=== PATIENT | male | born 1980 | race Hispanic/Latino ===

== ENCOUNTER 2022-03-09 14:43 | Inpatient (IN) | payer SELFPAY ==
[2022-03-09] MEDS ORDERED: MINERAL OIL/PETROLATUM, WHITE OPHTH OINT 3.5 GM OU PRN (15:06)
[2022-03-09] MEDS ORDERED: LIP THERAPY VASELINE TP PRN (15:06)
--- NOTE | 2022-03-09 15:13 | Emergency Department Report ---
ED Altered Mental Status HPI - General Chief Complaint: Altered Mental Status Stated Complaint: UNRESPONSIVE Time Seen by Provider: 03/09/22 15:03 Source: EMS Mode of arrival: Stretcher Limitations: Altered Mental Status - History of Present Illness Initial Comments: 41-year-old male with unknown past medical history presents to the hospital with possible drug overdose. EMS was called by unknown person who was originally at the scene stating that patient had overdosed. At time a police arrival this person was no longer at the scene. There was a female landlord at the scene who thought patient was sleeping on the couch. sba business development officer recognized that patient had diminished respirations and initiated sternal rub prior to EMS arrival. Upon EMS arrival patient had decreased respiratory rate and diminished mental status is satting in the 70s on room air. He received 1 mg of Narcan with improvement in her respiratory rate and oxygen saturation while assisted. They report that respiratory rate diminished and he required an additional 1 mg of Narcan prior to arrival. Upon arrival patient has a respiratory rate of 12- 15 unresponsive to deep stimulation. We provided 2.4 mg of Narcan upon arrival without improvement in mental status therefore patient was intubated for airway protection. - Related Data Allergies Allergy/AdvReac Type Severity Reaction Status Date / Time Unable to Assess Allergy Verified 03/09/22 14:49 ED Review of Systems ROS: Stated complaint: UNRESPONSIVE Other details as noted in HPI Comment: Unobtainable due to pts medical conditions ED Physical Exam - General Limitations: Altered Mental Status - Other Other exam information: General: No acute distress Head: Atraumatic Eyes: Pupils equal react to light 3mm equal and reactive ENT: Moist mucous membranes Neck: Normal appearance, no midline tenderness Chest: Clear to auscultation bilaterally CV: Regular rate and rhythm Abdomen: Soft, normal bowel sounds, nontender, nondistended, no rebound or guarding Back: Normal inspection Extremity: Normal inspection, full range of motion Neuro: drowsy gcs E 3, V 1, M 3= 7 patient only responds occasionally to pain and will lift his head off in response to deep sternal rub. No response to IV sticks or other tactile stimulation Psych: Unresponsive Skin: Sternal abrasion ED Course Vital Signs 03/09/22 03/09/22 03/09/22 14:48 14:50 15:01 Pulse Rate 96 H 89 Respiratory Rate Blood Pressure 125/76 Blood Pressure 134/84 [Left] O2 Sat by Pulse 99 100 100 Oximetry 03/09/22 03/09/22 03/09/22 15:15 15:31 15:45 Pulse Rate 89 78 75 Respiratory 22 22 22 Rate Blood Pressure 125/76 108/65 101/56 Blood Pressure [Left] O2 Sat by Pulse 100 100 100 Oximetry 03/09/22 03/09/22 03/09/22 16:01 16:15 16:31 Pulse Rate 67 62 59 L Respiratory 22 22 22 Rate Blood Pressure 97/53 100/57 102/58 Blood Pressure [Left] O2 Sat by Pulse 100 100 100 Oximetry 03/09/22 03/09/22 03/09/22 16:45 17:01 17:40 Pulse Rate 55 L 53 L 61 Respiratory 22 22 Rate Blood Pressure 104/59 104/63 95/56 Blood Pressure [Left] O2 Sat by Pulse 100 100 100 Oximetry - Reevaluation(s) Reevaluation #1: 03/09/22 17:08 RN states she spoke to family and they state his drugs of choice are xanax and heroin - Consultations Consultation #1: 03/09/22 17:[address] 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 - Intubation Time Out Performed: Yes Sedative: Etomidate Mg Given: 20 Paralytic: Succinylcholine Mg Given: 100 Laryngoscope: fiberoptic video scope Size: 4 ET Tube Size: 7.5 Tube Secured Depth (cm): 22 Tube Secured Location: lips Tube Placement Confirmation: visualized tube passing t, equal breath sounds bilat, no breath sounds over epi, confirmation by capnometr Patient Tolerated Procedure: well, no complications Intubation Complications: none Additional Comments: Respiratory therapist informed to advance ET tube to 25 at the lips after chest x-ray review - Lab Data Result diagrams: 03/09/22 15:09 03/09/22 15:35 Lab Results 03/09/22 03/09/22 03/09/22 Range/Units 15:09 15:35 15:35 WBC 9.6 (4.5-11.0) K/mm3 RBC 5.16 H (3.65-5.03) M/mm3 Hgb 16.1 H (11.8-15.2) gm/dl Hct 46.3 H (35.5-45.6) % MCV 90 (84-94) fl MCH 31 (28-32) pg MCHC 35 H (32-34) % RDW 13.1 L (13.2-15.2) % Plt Count 230 (140-440) K/mm3 Lymph % (Auto) 6.4 L (13.4-35.0) % [place] % (Auto) 3.5 (0.0-7.3) % Eos % (Auto) 0.4 (0.0-4.3) % Baso % (Auto) 0.4 (0.0-1.8) % Lymph # (Auto) 0.6 L (1.2-5.4) K/mm3 [place] # (Auto) 0.3 (0.0-0.8) K/mm3 Eos # (Auto) 0.0 (0.0-0.4) K/mm3 Baso # (Auto) 0.0 (0.0-0.1) K/mm3 Seg Neutrophils % 89.3 H (40.0-70.0) % Seg Neutrophils # 8.6 H (1.8-7.7) K/mm3 ABG pH (7.350-7.450) pH Units ABG pCO2 mm Hg ABG pO2 (80.0-90.0) mm Hg ABG HCO3 (20.0-26.0) mmol/L ABG O2 Saturation (95.0-99.0) % ABG O2 Content (0.0-44) ABG Base Excess (-2.0-3.0) mmol/L ABG Hemoglobin (14.0-18.0) gm/dl ABG Carboxyhemoglobin (0.0-5.0) % ABG Methemoglobin (0.0-1.5) % Oxyhemoglobin (95.0-99.0) % FiO2 % Sodium 141 (137-145) mmol/L Potassium 4.2 (3.6-5.0) mmol/L Chloride 102.4 (98-107) mmol/L Carbon Dioxide 24 (22-30) mmol/L Anion Gap 19 mmol/L BUN 21 H (9-20) mg/dL Creatinine 1.5 H (0.8-1.3) mg/dL Estimated GFR 51 ml/min BUN/Creatinine Ratio 14 % Glucose 184 H (75-100) mg/dL Calcium 9.0 (8.4-10.2) mg/dL Magnesium (1.7-2.3) mg/dL Total Bilirubin 0.80 (0.1-1.2) mg/dL AST 386 H (5-40) units/L ALT 314 H (7-56) units/L Alkaline Phosphatase 64 (35-129) units/L Ammonia (25-60) umol/L Total Creatine Kinase (55-170) units/L Total Protein 7.2 (6.3-8.2) g/dL Albumin 4.2 (3.9-5) g/dL Albumin/Globulin Ratio 1.4 % Urine Color (Yellow) Urine Turbidity (Clear) Urine pH (5.0-7.0) Ur Specific [place] (1.003-1.030) Urine Protein (Negative) mg/dL Urine Glucose (UA) (Negative) mg/dL Urine Ketones (Negative) mg/dL Urine Blood (Negative) Urine Nitrite (Negative) Urine Bilirubin (Negative) Urine Urobilinogen (<2.0) mg/dL Ur Leukocyte Esterase (Negative) Urine WBC (Auto) (0.0-6.0) /HPF Urine RBC (Auto) (0.0-6.0) /HPF U Epithel Cells (Auto) (0-13.0) /HPF Urine Bacteria (Auto) (Negative) /HPF Urine Mucus /HPF Urine Yeast (Budding) /HPF Urine Sperm (FUEL DOCK ATTENDANT) /HPF Salicylates < 0.3 L (2.8-20.0) mg/dL Urine Opiates Screen Urine Methadone Screen Acetaminophen (10.0-30.0) ug/mL Ur Barbiturates Screen Ur Phencyclidine Scrn Ur Amphetamines Screen U Benzodiazepines Scrn Urine Cocaine Screen U Marijuana (THC) Screen Drugs of Abuse Note Plasma/Serum Alcohol (0-0.07) % 03/09/22 03/09/22 03/09/22 Range/Units 15:35 15:35 15:35 WBC (4.5-11.0) K/mm3 RBC (3.65-5.03) M/mm3 Hgb (11.8-15.2) gm/dl Hct (35.5-45.6) % MCV (84-94) fl MCH (28-32) pg MCHC (32-34) % RDW (13.2-15.2) % Plt Count (140-440) K/mm3 Lymph % (Auto) (13.4-35.0) % Stafford % (Auto) (0.0-7.3) % Eos % (Auto) (0.0-4.3) % Baso % (Auto) (0.0-1.8) % Lymph # (Auto) (1.2-5.4) K/mm3 [place] # (Auto) (0.0-0.8) K/mm3 Eos # (Auto) (0.0-0.4) K/mm3 Baso # (Auto) (0.0-0.1) K/mm3 Seg Neutrophils % (40.0-70.0) % Seg Neutrophils # (1.8-7.7) K/mm3 ABG pH (7.350-7.450) pH Units ABG pCO2 mm Hg ABG pO2 (80.0-90.0) mm Hg ABG HCO3 (20.0-26.0) mmol/L ABG O2 Saturation (95.0-99.0) % ABG O2 Content (0.0-44) ABG Base Excess (-2.0-3.0) mmol/L ABG Hemoglobin (14.0-18.0) gm/dl ABG Carboxyhemoglobin (0.0-5.0) % ABG Methemoglobin (0.0-1.5) % Oxyhemoglobin (95.0-99.0) % FiO2 % Sodium (137-145) mmol/L Potassium (3.6-5.0) mmol/L Chloride (98-107) mmol/L Carbon Dioxide (22-30) mmol/L Anion Gap mmol/L BUN (9-20) mg/dL Creatinine (0.8-1.3) mg/dL Estimated GFR ml/min BUN/Creatinine Ratio % Glucose (75-100) mg/dL Calcium (8.4-10.2) mg/dL Magnesium 2.40 H (1.7-2.3) mg/dL Total Bilirubin (0.1-1.2) mg/dL AST (5-40) units/L ALT (7-56) units/L Alkaline Phosphatase (35-129) units/L Ammonia (25-60) umol/L Total Creatine Kinase (55-170) units/L Total Protein (6.3-8.2) g/dL Albumin (3.9-5) g/dL Albumin/Globulin Ratio % Urine Color (Yellow) Urine Turbidity (Clear) Urine pH (5.0-7.0) Ur Specific [place] (1.003-1.030) Urine Protein (Negative) mg/dL Urine Glucose (UA) (Negative) mg/dL Urine Ketones (Negative) mg/dL Urine Blood (Negative) Urine Nitrite (Negative) Urine Bilirubin (Negative) Urine Urobilinogen (<2.0) mg/dL Ur Leukocyte Esterase (Negative) Urine WBC (Auto) (0.0-6.0) /HPF Urine RBC (Auto) (0.0-6.0) /HPF U Epithel Cells (Auto) (0-13.0) /HPF Urine Bacteria (Auto) (Negative) /HPF Urine Mucus /HPF Urine Yeast (Budding) /HPF Urine Sperm (FUEL DOCK ATTENDANT) /HPF Salicylates (2.8-20.0) mg/dL Urine Opiates Screen Urine Methadone Screen Acetaminophen 5.0 L (10.0-30.0) ug/mL Ur Barbiturates Screen Ur Phencyclidine Scrn Ur Amphetamines Screen U Benzodiazepines Scrn Urine Cocaine Screen U Marijuana (THC) Screen Drugs of Abuse Note Plasma/Serum Alcohol < 0.01 (0-0.07) % 03/09/22 03/09/22 03/09/22 Range/Units 15:35 15:40 19:01 WBC (4.5-11.0) K/mm3 RBC (3.65-5.03) M/mm3 Hgb (11.8-15.2) gm/dl Hct (35.5-45.6) % MCV (84-94) fl MCH (28-32) pg MCHC (32-34) % RDW (13.2-15.2) % Plt Count (140-440) K/mm3 Lymph % (Auto) (13.4-35.0) % Stafford % (Auto) (0.0-7.3) % Eos % (Auto) (0.0-4.3) % Baso % (Auto) (0.0-1.8) % Lymph # (Auto) (1.2-5.4) K/mm3 Stafford # (Auto) (0.0-0.8) K/mm3 Eos # (Auto) (0.0-0.4) K/mm3 Baso # (Auto) (0.0-0.1) K/mm3 Seg Neutrophils % (40.0-70.0) % Seg Neutrophils # (1.8-7.7) K/mm3 ABG pH 7.376 (7.350-7.450) pH Units ABG pCO2 41.2 mm Hg ABG pO2 469.0 H (80.0-90.0) mm Hg ABG HCO3 23.6 (20.0-26.0) mmol/L ABG O2 Saturation 99.6 H (95.0-99.0) % ABG O2 Content 22.1 (0.0-44) ABG Base Excess -1.5 (-2.0-3.0) mmol/L ABG Hemoglobin 15.2 (14.0-18.0) gm/dl ABG Carboxyhemoglobin 1.4 (0.0-5.0) % ABG Methemoglobin 0.5 (0.0-1.5) % Oxyhemoglobin 97.7 (95.0-99.0) % FiO2 100 % Sodium (137-145) mmol/L Potassium (3.6-5.0) mmol/L Chloride (98-107) mmol/L Carbon Dioxide (22-30) mmol/L Anion Gap mmol/L BUN (9-20) mg/dL Creatinine (0.8-1.3) mg/dL Estimated GFR ml/min BUN/Creatinine Ratio % Glucose (75-100) mg/dL Calcium (8.4-10.2) mg/dL Magnesium (1.7-2.3) mg/dL Total Bilirubin (0.1-1.2) mg/dL AST (5-40) units/L ALT (7-56) units/L Alkaline Phosphatase (35-129) units/L Ammonia 57.0 (25-60) umol/L Total Creatine Kinase 505 H (55-170) units/L Total Protein (6.3-8.2) g/dL Albumin (3.9-5) g/dL Albumin/Globulin Ratio % Urine Color (Yellow) Urine Turbidity (Clear) Urine pH (5.0-7.0) Ur Specific [place] (1.003-1.030) Urine Protein (Negative) mg/dL Urine Glucose (UA) (Negative) mg/dL Urine Ketones (Negative) mg/dL Urine Blood (Negative) Urine Nitrite (Negative) Urine Bilirubin (Negative) Urine Urobilinogen (<2.0) mg/dL Ur Leukocyte Esterase (Negative) Urine WBC (Auto) (0.0-6.0) /HPF Urine RBC (Auto) (0.0-6.0) /HPF U Epithel Cells (Auto) (0-13.0) /HPF Urine Bacteria (Auto) (Negative) /HPF Urine Mucus /HPF Urine Yeast (Budding) /HPF Urine Sperm (FUEL DOCK ATTENDANT) /HPF Salicylates (2.8-20.0) mg/dL Urine Opiates Screen Urine Methadone Screen Acetaminophen (10.0-30.0) ug/mL Ur Barbiturates Screen Ur Phencyclidine Scrn Ur Amphetamines Screen U Benzodiazepines Scrn Urine Cocaine Screen U Marijuana (THC) Screen Drugs of Abuse Note Plasma/Serum Alcohol (0-0.07) % 03/09/22 03/09/22 Range/Units Unknown Unknown WBC (4.5-11.0) K/mm3 RBC (3.65-5.03) M/mm3 Hgb (11.8-15.2) gm/dl Hct (35.5-45.6) % MCV (84-94) fl MCH (28-32) pg MCHC (32-34) % RDW (13.2-15.2) % Plt Count (140-440) K/mm3 Lymph % (Auto) (13.4-35.0) % [place] % (Auto) (0.0-7.3) % Eos % (Auto) (0.0-4.3) % Baso % (Auto) (0.0-1.8) % Lymph # (Auto) (1.2-5.4) K/mm3 [place] # (Auto) (0.0-0.8) K/mm3 Eos # (Auto) (0.0-0.4) K/mm3 Baso # (Auto) (0.0-0.1) K/mm3 Seg Neutrophils % (40.0-70.0) % Seg Neutrophils # (1.8-7.7) K/mm3 ABG pH (7.350-7.450) pH Units ABG pCO2 mm Hg ABG pO2 (80.0-90.0) mm Hg ABG HCO3 (20.0-26.0) mmol/L ABG O2 Saturation (95.0-99.0) % ABG O2 Content (0.0-44) ABG Base Excess (-2.0-3.0) mmol/L ABG Hemoglobin (14.0-18.0) gm/dl ABG Carboxyhemoglobin (0.0-5.0) % ABG Methemoglobin (0.0-1.5) % Oxyhemoglobin (95.0-99.0) % FiO2 % Sodium (137-145) mmol/L Potassium (3.6-5.0) mmol/L Chloride (98-107) mmol/L Carbon Dioxide (22-30) mmol/L Anion Gap mmol/L BUN (9-20) mg/dL Creatinine (0.8-1.3) mg/dL Estimated GFR ml/min BUN/Creatinine Ratio % Glucose (75-100) mg/dL Calcium (8.4-10.2) mg/dL Magnesium (1.7-2.3) mg/dL Total Bilirubin (0.1-1.2) mg/dL AST (5-40) units/L ALT (7-56) units/L Alkaline Phosphatase (35-129) units/L Ammonia (25-60) umol/L Total Creatine Kinase (55-170) units/L Total Protein (6.3-8.2) g/dL Albumin (3.9-5) g/dL Albumin/Globulin Ratio % Urine Color Yellow (Yellow) Urine Turbidity Slightly-cloudy (Clear) Urine pH 6.0 (5.0-7.0) Ur Specific [place] 1.014 (1.003-1.030) Urine Protein 30 mg/dl (Negative) mg/dL Urine Glucose (UA) 50 (Negative) mg/dL Urine Ketones Neg (Negative) mg/dL Urine Blood Neg (Negative) Urine Nitrite Neg (Negative) Urine Bilirubin Neg (Negative) Urine Urobilinogen 2.0 (<2.0) mg/dL Ur Leukocyte Esterase Neg (Negative) Urine WBC (Auto) 4.0 (0.0-6.0) /HPF Urine RBC (Auto) 6.0 (0.0-6.0) /HPF U Epithel Cells (Auto) < 1.0 (0-13.0) /HPF Urine Bacteria (Auto) 2+ (Negative) /HPF Urine Mucus Few /HPF Urine Yeast (Budding) 1+ /HPF Urine Sperm 1+ (FUEL DOCK ATTENDANT) /HPF Salicylates (2.8-20.0) mg/dL Urine Opiates Screen Negative Urine Methadone Screen Negative Acetaminophen (10.0-30.0) ug/mL Ur Barbiturates Screen Negative Ur Phencyclidine Scrn Negative Ur Amphetamines Screen Positive U Benzodiazepines Scrn Negative Urine Cocaine Screen Negative U Marijuana (THC) Screen Positive Drugs of Abuse Note Disclamer Plasma/Serum Alcohol (0-0.07) % - EKG Data -: EKG Interpreted by Ut EKG shows normal: sinus rhythm, ST-T waves (No STEMI) Rate: bradycardia (102) When compared to previous EKG there are: previous EKG unavailable - Radiology Data Radiology results: report reviewed CHEST 1 VIEW 03/09/2022 2:32 PM INDICATION / CLINICAL INFORMATION: post intubation, possible overdose. COMPARISON: None available. FINDINGS: SUPPORT DEVICES: The endotracheal tube terminates 6 cm superior to the roula. HEART / MEDIASTINUM: No significant abnormality. LUNGS / PLEURA: No significant pulmonary or pleural abnormality. No pneumothorax. ADDITIONAL FINDINGS: No significant additional findings. IMPRESSION: Endotracheal tube as described. No acute process in the chest. CT BRAIN: 03/09/2022 INDICATION / CLINICAL INFORMATION: ams, intubation, possible overdose. COMPARISON: None available. FINDINGS: BRAIN/INTRACRANIAL STRUCTURES: Unenhanced CT images of the brain demonstrate no evidence of acute abnormality. Ventricles and sulci are within normal limits in size and shape for a patient of this age. There is no evidence of acute ischemic injury, hemorrhage, or mass. There are no abnormal extra- axial fluid collections. EXTRACRANIAL STRUCTURES: Unremarkable. IMPRESSION: No acute abnormality. - Medical Decision Making 41-year-old male with known history of substance abuse presents to the hospital possible drug overdose. Patient had a minimal response to repeated doses of Narcan therefore intubated for airway protection. Additional ED work-up reveals a normal CAT scan of the head, mild renal insufficiency, elevated LFTs, and UDS positive for marijuana and amphetamines. Ammonia ordered. ABG does not reveal any significant acid-base disturbance and has a normal pH. Case discussed with critical care doctor for consultation. Hospitalist to admit Critical Care Time: Yes Critical care time in (mins) excluding proc time.: 40 Critical care attestation.: If time is entered above; I have spent that time in minutes in the direct care of this critically ill patient, excluding procedure time. Critical Care Time: 40 Minutes of critical care time excluding procedures were used in the care of the patient. I came immediately to the bedside upon patient's arrival. I obtained history from EMS at the bedside. I discussed treatment plan with the nursing team members. I reviewed electronic record. Patient required multiple interventions and reassessments. Spoke with hospitalist and critical care MD regarding case ED Disposition Clinical Impression: Endotracheally intubated, Acute encephalopathy, Renal insufficiency, Transaminitis, Amphetamine abuse Drug overdose Qualifiers: Encounter type: initial encounter Disposition: ADMITTED INPATIENT Is pt being admited?: Yes Condition: Stable Time of Disposition: 18:31 (Dr Vang/hospitalist)
[2022-03-09] MEDS ORDERED: NALOXONE 0.4 MG/1 ML INJ IV ONE ×2 (15:35→15:36)
--- NOTE | 2022-03-09 15:39 | XRay Report ---
CHEST 1 VIEW 03/09/2022 2:32 PM INDICATION / CLINICAL INFORMATION: post intubation, possible overdose. COMPARISON: None available. FINDINGS: SUPPORT DEVICES: The endotracheal tube terminates 6 cm superior to the roula. HEART / MEDIASTINUM: No significant abnormality. LUNGS / PLEURA: No significant pulmonary or pleural abnormality. No pneumothorax. ADDITIONAL FINDINGS: No significant additional findings. IMPRESSION: Endotracheal tube as described. No acute process in the chest. Signer Name: Brayan Calzada Jr, MD Signed: 03/09/2022 3:35 PM Workstation Name: [id number]
[2022-03-09 15:43] LABS: Basophils % (Auto) 0.4 % (0.0-1.8); Eosinophils % (Auto) 0.4 % (0.0-4.3); Hematocrit 46.3 % (35.5-45.6); Hemoglobin 16.1 gm/dl (11.8-15.2); Lymphocytes # (Auto) 0.6 K/mm3 (1.2-5.4); Lymphocytes % (Auto) 6.4 % (13.4-35.0); Mean Corpuscular HGB Conc 35 % (32-34); Mean Corpuscular Volume 90 fl (84-94); Monocytes # (Auto) 0.3 K/mm3 (0.0-0.8); Monocytes % (Auto) 3.5 % (0.0-7.3); Red Blood Count 5.16 M/mm3 (3.65-5.03); Red Cell Distribution Width 13.1 % (13.2-15.2)
[2022-03-09 15:45] LABS: Platelet Count 230 K/mm3 (140-440)
[2022-03-09] MEDS ORDERED: SODIUM CHLORIDE 0.9% 1000 ML 1,000 ML ONE (15:54)
[2022-03-09] MEDS ORDERED: SODIUM CHLORIDE 0.9% 1000 ML 1,000 ML IV ONE ×2 (15:55→18:26)
[2022-03-09] MEDS ORDERED: MIDAZOLAM 5 MG/5 ML INJ MDV IV NR ×2 (16:00→18:00)
[2022-03-09 16:02] LABS: ABG Base Excess -1.5 mmol/L (-2.0-3.0); ABG HCO3 23.6 mmol/L (20.0-26.0); ABG Methemoglobin 0.5 % (0.0-1.5); ABG Oxygen Saturation 99.6 % (95.0-99.0); ABG PCO2 41.2 mm Hg; ABG PH 7.376 pH Units (7.350-7.450)
[2022-03-09 16:06] LABS: Bacteria,Urine 2+ /HPF (Negative); Bilirubin,Urine NEG (Negative); Blood,Urine NEG (Negative); Color,Urine Yellow (Yellow); Mucus,Urine FEW /HPF; Sperm,Urine 1+ /HPF (NP)
[2022-03-09 16:11] LABS: Benzodiazepines Screen,Urine Negative; Cocaine Screen,Urine Negative; Methadone Screen,Urine Negative; Opiate Screen,Urine Negative
[2022-03-09 16:28] LABS: Amphetamine Screen,Urine Positive; Cannabinoid Screen,Urine Positive
[2022-03-09 17:28] LABS: Albumin 4.2 g/dL (3.9-5)
[2022-03-09] MEDS: MIDAZOLAM 5 MG/5 ML INJ MDV IV PRN ×2 (17:30→19:05)
--- NOTE | 2022-03-09 17:55 | Cat Scan Report ---
CT BRAIN: 03/09/2022 INDICATION / CLINICAL INFORMATION: ams, intubation, possible overdose. COMPARISON: None available. FINDINGS: BRAIN/INTRACRANIAL STRUCTURES: Unenhanced CT images of the brain demonstrate no evidence of acute abn ormality. Ventricles and sulci are within normal limits in size and shape for a patient of this age. There is no evidence of acute ischemic injury, hemorrhage, or mass. There are no abnormal extra-axial fluid collections. EXTRACRANIAL STRUCTURES: Unremarkable. IMPRESSION: No acute abnormality. All CT scans at this location are performed using dose reduction to ALARA by means of automated expos ure control. Signer Name: Carlos Crystal MD Signed: 03/09/2022 5:51 PM Workstation Name: [id number]
[2022-03-09] MEDS ORDERED: ETOMIDATE 20 MG/10 ML INJ IV ONE (18:12)
[2022-03-09] MEDS ORDERED: NALOXONE 0.4 MG/1 ML INJ ONE (18:12)
[2022-03-09] MEDS ORDERED: NALOXONE 2 MG/2 ML INJ ONE (18:12)
[2022-03-09] MEDS ORDERED: SUCCINYLCHOLINE CHLORIDE 200 MG/10 ML INJ MDV ONE (18:12)
--- NOTE | 2022-03-09 18:52 | History and Physical Report ---
History of Present Illness Chief complaint: Unresponsive History of present illness: 41 YO Male with with reported history of polysubstance abuse presents to ED for evaluation. Patient is intubated and on ventilatory support at time of evaluation is unable to provide history. Patient history taken EMS staff, ED staff, as well as carolin Montes who notified EMS. EMS was notified by the aforementioned carolin Montes for a suspected drug overdose. Upon arrival the patient was found down and unresponsive with a pulse oximetry in the 70s on room air. The patient was treated with 1 mg of Narcan with improvement in symptoms. Patient subsequently transported to [facility] for further care and evaluation of the aforementioned symptoms. The patient was seen and evaluated in the emergency department. All lab and imaging studies reviewed. Patient was found to be lethargic with a pulse oximetry in the 80s on room air and was deemed unable to protect his airway and was subsequently intubated and placed on ventilatory support due to acute hypoxemic respiratory failure. No reports of fever, chills, chest pain, palpitation, productive cough, skin rash, recent contact, known exposure to COVID-19. No prior admission for review. No medication listed at time of admission for reconciliation. No further history is obtainable. Patient admitted to ICU due to increased risk of worsening symptoms. Past History Past Medical History: No medical history, other (Unable to obtain) Past Surgical History: No surgical history, Other (Unable to obtain) Social history: , smoking, other (Polysubstance abuse) Family history: no significant family history, other (Unable to obtain) Medications and Allergies Allergies Allergy/AdvReac Type Severity Reaction Status Date / Time Unable to Assess Allergy Verified 03/09/22 14:49 Active Meds: Active Medications Famotidine (Famotidine 20 Mg/2 Ml Inj) 20 mg IV BID BREONNA Hydrophilic Ointment (Lip Therapy Vaseline) 1 applic TP Q2HR PRN PRN Reason: Dry Lips Propofol (Diprivan 10 Mg/Ml) 1,000 mg in 100 mls @ 2.177 mls/hr IV TITR BREONNA; Protocol Last Admin: 03/09/22 15:01 Dose: 15 mcg/kg/min, 6.532 mls/hr Sodium Chloride (Nacl 0.9% 1000 Ml) 1,000 mls @ 999 mls/hr IV BOLUS ONE Stop: 03/09/22 19:26 Multi-Ingred Cream/Lotion/Oil/Oint (Mineral Oil/Petrolatum, White Ophth Oint 3.5 Gm) 1 applic OU Q4HR PRN PRN Reason: Dry Eye(s) Senna/Docusate Sodium (Sennosides/Docusate Sodium 8.6/50 Mg Tab) 1 tab FEEDTUBE BID BREONNA Review of Systems ROS unobtainable: due to endotracheal tube, due to mental status Exam - Constitutional Vitals: Temp Pulse Resp BP Pulse Ox 53 L 22 104/63 100 03/09/22 17:01 03/09/22 17:01 03/09/22 17:01 03/09/22 17:01 General appearance: Present: mild distress - EENT Eyes: Present: miosis ENT: hearing decreased - Neck Neck: Present: supple, normal ROM - Respiratory Respiratory effort: labored, accessory muscle use, stridor Respiratory: bilateral: diminished, rhonchi - Cardiovascular Heart Sounds: Present: S1 & S2. Absent: rub, click - Extremities Extremities: pulses symmetrical, No edema Peripheral Pulses: within normal limits - Abdominal General gastrointestinal: Present: soft, non-tender, non-distended, normal bowel sounds Male genitourinary: Present: normal - Integumentary Integumentary: Present: clear, warm - Musculoskeletal Musculoskeletal: generalized weakness - Psychiatric Psychiatric: no appropriate mood/affect, no intact judgment & insight, no memory intact - Neurologic Neurologic: CNII-XII intact, no focal deficits, moves all extremities, no gait normal Results - Labs CBC & Chem 7: 03/09/22 15:09 03/09/22 15:35 Labs: Abnormal lab results 03/09/22 03/09/22 03/09/22 Range/Units 15:09 15:35 15:35 RBC 5.16 H (3.65-5.03) M/mm3 Hgb 16.1 H (11.8-15.2) gm/dl Hct 46.3 H (35.5-45.6) % MCHC 35 H (32-34) % RDW 13.1 L (13.2-15.2) % Lymph % (Auto) 6.4 L (13.4-35.0) % Lymph # (Auto) 0.6 L (1.2-5.4) K/mm3 Seg Neutrophils % 89.3 H (40.0-70.0) % Seg Neutrophils # 8.6 H (1.8-7.7) K/mm3 ABG pO2 (80.0-90.0) mm Hg ABG O2 Saturation (95.0-99.0) % BUN 21 H (9-20) mg/dL Creatinine 1.5 H (0.8-1.3) mg/dL Glucose 184 H (75-100) mg/dL Magnesium (1.7-2.3) mg/dL AST 386 H (5-40) units/L ALT 314 H (7-56) units/L Total Creatine Kinase (55-170) units/L Salicylates < 0.3 L (2.8-20.0) mg/dL Acetaminophen (10.0-30.0) ug/mL 03/09/22 03/09/22 03/09/22 Range/Units 15:35 15:35 15:35 RBC (3.65-5.03) M/mm3 Hgb (11.8-15.2) gm/dl Hct (35.5-45.6) % MCHC (32-34) % RDW (13.2-15.2) % Lymph % (Auto) (13.4-35.0) % Lymph # (Auto) (1.2-5.4) K/mm3 Seg Neutrophils % (40.0-70.0) % Seg Neutrophils # (1.8-7.7) K/mm3 ABG pO2 (80.0-90.0) mm Hg ABG O2 Saturation (95.0-99.0) % BUN (9-20) mg/dL Creatinine (0.8-1.3) mg/dL Glucose (75-100) mg/dL Magnesium 2.40 H (1.7-2.3) mg/dL AST (5-40) units/L ALT (7-56) units/L Total Creatine Kinase 505 H (55-170) units/L Salicylates (2.8-20.0) mg/dL Acetaminophen 5.0 L (10.0-30.0) ug/mL 03/09/22 Range/Units 15:40 RBC (3.65-5.03) M/mm3 Hgb (11.8-15.2) gm/dl Hct (35.5-45.6) % MCHC (32-34) % RDW (13.2-15.2) % Lymph % (Auto) (13.4-35.0) % Lymph # (Auto) (1.2-5.4) K/mm3 Seg Neutrophils % (40.0-70.0) % Seg Neutrophils # (1.8-7.7) K/mm3 ABG pO2 469.0 H (80.0-90.0) mm Hg ABG O2 Saturation 99.6 H (95.0-99.0) % BUN (9-20) mg/dL Creatinine (0.8-1.3) mg/dL Glucose (75-100) mg/dL Magnesium (1.7-2.3) mg/dL AST (5-40) units/L ALT (7-56) units/L Total Creatine Kinase (55-170) units/L Salicylates (2.8-20.0) mg/dL Acetaminophen (10.0-30.0) ug/mL Assessment and Plan - Patient Problems (1) Acute hypoxemic respiratory failure Status: Acute Plan to address problem: Chest x-ray, supplemental oxygen, pulse oximetry, patient independent ambulatory support. Wean vent as tolerated, spontaneous breathing trial daily, sedation holiday. The high probability of a clinically significant, sudden or life threatening deterioration of the [neuro, endocrine, renal, pulmonary] system(s) required my full and direct attention, intervention and personal management. The aggregate critical care time was [95] minutes. This time is in addition to time spent performing reported procedures but includes the following: [x] Data Review and interpretation [x] Patient assessment and monitoring of vital signs [x] Documentation [x] Medication orders and management (2) Acute encephalopathy Status: Acute Plan to address problem: CT head, neuro check, seizure cautions, supportive care. (3) Drug overdose Status: Acute Qualifiers: Encounter type: initial encounter Plan to address problem: Supportive care, continue medical management. (4) DVT prophylaxis Status: Acute Plan to address problem: SCD to bilateral lower extremities while in bed (5) Advance care planning Status: Acute Plan to address problem: Disease education data, care plan discussed, diagnoses discussed, prognosis discussed, patient is full code, +30 minutes.
[2022-03-09] MEDS ORDERED: SENNOSIDES/DOCUSATE SODIUM 8.6/50 MG TAB FEEDTUBE SCH (22:00)
[2022-03-09] MEDS ORDERED: FAMOTIDINE 20 MG/2 ML INJ IV SCH (22:00)
[2022-03-09] MEDS ORDERED: MAGNESIUM HYDROXIDE (MOM) ORAL LIQD UDC PO PRN (22:55)
[2022-03-09] MEDS ORDERED: MORPHINE 2 MG/1 ML INJ IV PRN (22:55)
[2022-03-09] MEDS ORDERED: ONDANSETRON 4 MG/2 ML INJ IV PRN (22:55)
[2022-03-09] MEDS ORDERED: MORPHINE 4 MG/1 ML INJ IV PRN (22:55)
[2022-03-09] MEDS ORDERED: ACETAMINOPHEN 325 MG TAB PO PRN (22:55)
[2022-03-09] MEDS ORDERED: SODIUM CHLORIDE 0.9% 1000 ML 1,000 ML IV SCH (23:00)
[2022-03-10 05:00] VITALS: BP 115/66
--- NOTE | 2022-03-10 13:51 | Event Note ---
Date: 03/10/22 Signed out AMA before my evaluation
--- NOTE | 2022-03-11 07:50 | Event Note ---
Date: 03/10/22 Patient left AMA Patient was not seen
--- NOTE | 2022-03-11 07:51 | Discharge Summary ---
Providers - Providers Date of Admission: 03/09/22 22:56 Date of discharge: 03/10/22 Attending physician: ANUM WHITEHEAD 03/09/22 15:06 Consult to Dietitian/Nutrition [CONS] Routine Physician Instructions: Reason For Exam: Reason for Consult: Evaluate nutritional intake 03/09/22 17:15 Consult to Physician [CONS] Urgent Comment: Consulting Provider: ANDRZEJ GOTTI Physician Instructions: Reason For Exam: intubated overdose Primary care physician: TOD FABIAN Hospitalization Condition: Stable Hospital course: History of present illness: 41 YO Male with with reported history of polysubstance abuse presents to ED for evaluation. Patient is intubated and on ventilatory support at time of evaluation is unable to provide history. Patient history taken EMS staff, ED staff, as well as carolin [facility] who notified EMS. EMS was notified by the aforementioned carolin Montes for a suspected drug overdose. Upon arrival the patient was found down and unresponsive with a pulse oximetry in the 70s on room air. The patient was treated with 1 mg of Narcan with improvement in symptoms. Patient subsequently transported to [facility] for further care and evaluation of the aforementioned symptoms. The patient was seen and evaluated in the emergency department. All lab and imaging studies reviewed. Patient was found to be lethargic with a pulse oximetry in the 80s on room air and was deemed unable to protect his airway and was subsequently intubated and placed on ventilatory support due to acute hypoxemic respiratory failure. No reports of fever, chills, chest pain, palpitation, productive cough, skin rash, recent contact, known exposure to COVID-19. No prior admission for review. No medication listed at time of admission for reconciliation. No further history is obtainable. Patient admitted to ICU due to increased risk of worsening symptoms. (1) Acute hypoxemic respiratory failure Status: Acute Plan to address problem: Patient left AMA without being seen to address problem: CT head, neuro check, seizure cautions, supportive care. (2) Drug overdose Patient left AMA without being seen Disposition: 07 LEFT AGAINST MEDICAL ADVICE Final Discharge Diagnosis (Prints w/discharge instructions): Acute respiratory failure with hypoxia. Drug overdose. Acute encephalopathy Time spent for discharge: 32 minutes Core Measure Documentation - Palliative Care Palliative Care/ Comfort Measures: Not Applicable - Core Measures Any of the following diagnoses?: none Exam - Constitutional Vitals: Temp Pulse Resp BP Pulse Ox 55 L 6 L 115/66 100 03/10/22 01:01 03/10/22 01:01 03/10/22 01:01 03/10/22 01:01 General appearance: Present: no acute distress, well-nourished - EENT Eyes: Present: PERRL ENT: hearing intact, clear oral mucosa - Neck Neck: Present: supple, normal ROM - Respiratory Respiratory effort: normal Respiratory: bilateral: CTA - Cardiovascular Heart rate: 78 Rhythm: regular Heart Sounds: Present: S1 & S2. Absent: rub, click - Extremities Extremities: pulses symmetrical, No edema Peripheral Pulses: within normal limits - Abdominal General gastrointestinal: Present: soft, non-tender, non-distended, normal bowel sounds Male genitourinary: Present: normal - Integumentary Integumentary: Present: clear, warm, dry - Musculoskeletal Musculoskeletal: gait normal, strength equal bilaterally - Psychiatric Psychiatric: appropriate mood/affect, intact judgment & insight - Neurologic Neurologic: CNII-XII intact, moves all extremities Plan Activity: no restrictions Diet: regular Follow up with: TOD FABIAN MD [Primary Care Provider] - 3-5 Days
--- NOTE | 2022-03-11 12:03 | Electrocardiograph Report ---
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
== END 2022-03-10 06:07 | disposition left against medical advice (07) | DRG 917 ==
LOC: ED 14:43 → 3A 22:56
PROVIDERS: ADMIT Internal Medicine; ATTEND Internal Medicine
DX: T50.901A Poisoning by unspecified drugs, medicaments and biological substances, accidental (unintentional), initial encounter (principal); J96.01 Acute respiratory failure with hypoxia; G93.49 Other encephalopathy; Y92.89 Other specified places as the place of occurrence of the external cause
CPT/HCPCS: 36415; 70450; 71045; 80053; 80307; 80320; 81001; 82140; 82550; 82803; 83735; 85025; 87205; 93005; 94002; G0378; J3490; G0480; J0330; J2250; J2310; J2704; J7030

== ENCOUNTER 2022-05-30 14:17 | Emergency (ER) | payer SELFPAY ==
--- NOTE | 2022-05-30 14:41 | Emergency Department Report ---
History of Present Illness - General Chief Complaint: Overdose Stated Complaint: OVERDOSE Time Seen by Provider: 05/30/22 14:29 Source: patient, EMS Mode of arrival: Stretcher Limitations: No Limitations - History of Present Illness Initial Comments: 21-year-old male patient with history of substance abuse and previous overdoses presents with EMS after being found unresponsive in a truck. Patient was given 4 mg of nitroglycerin intranasally from PD without response, and then 2 mg IV by EMS after which she became responsive and fully oriented. Patient is still alert, but sleepy, and denies any complaints. Patient denies any medication or substance use, today. - Related Data Allergies Allergy/AdvReac Type Severity Reaction Status Date / Time Unable to Assess Allergy Verified 05/30/22 14:24 ED Review of Systems ROS: Stated complaint: OVERDOSE Other details as noted in HPI ED Past Medical Hx - Social History Smoking Status: Current Every Day Smoker Substance Use Type: Alcohol, Cocaine, Marijuana, Methamphetamines, Other ED Physical Exam - General Limitations: No Limitations ED Course Vital Signs 05/30/22 05/30/22 05/30/22 14:21 14:28 14:30 Temperature 97.7 F Pulse Rate 106 H 89 84 Respiratory 14 12 Rate Blood Pressure 121/68 Blood Pressure 132/85 [Left] O2 Sat by Pulse 100 98 Oximetry 05/30/22 05/30/22 05/30/22 14:46 15:00 15:16 Temperature Pulse Rate 76 81 72 Respiratory 12 11 L 11 L Rate Blood Pressure 114/68 114/68 118/66 Blood Pressure [Left] O2 Sat by Pulse 95 98 96 Oximetry 05/30/22 05/30/22 05/30/22 15:30 15:46 16:00 Temperature Pulse Rate 70 68 68 Respiratory 11 L 10 L 11 L Rate Blood Pressure 118/66 118/68 118/68 Blood Pressure [Left] O2 Sat by Pulse 96 97 97 Oximetry 05/30/22 05/30/22 05/30/22 16:16 16:30 16:46 Temperature Pulse Rate 65 64 64 Respiratory 9 L 11 L 13 Rate Blood Pressure 119/73 119/73 115/76 Blood Pressure [Left] O2 Sat by Pulse 97 99 98 Oximetry 05/30/22 05/30/22 05/30/22 17:00 17:16 17:30 Temperature Pulse Rate 65 62 58 L Respiratory 9 L 10 L 12 Rate Blood Pressure 115/76 123/68 123/68 Blood Pressure [Left] O2 Sat by Pulse 98 98 98 Oximetry 05/30/22 05/30/22 05/30/22 17:46 18:00 18:16 Temperature Pulse Rate 60 62 60 Respiratory 8 L 7 L 7 L Rate Blood Pressure 110/68 110/68 117/94 Blood Pressure [Left] O2 Sat by Pulse 98 97 98 Oximetry 05/30/22 18:30 Temperature Pulse Rate 63 Respiratory 10 L Rate Blood Pressure 117/94 Blood Pressure [Left] O2 Sat by Pulse 98 Oximetry ED Medical Decision Making - Lab Data Result diagrams: 05/30/22 16:06 05/30/22 16:06 Critical care attestation.: If time is entered above; I have spent that time in minutes in the direct care of this critically ill patient, excluding procedure time. ED Disposition Clinical Impression: Altered mental status associated with intoxication Disposition: 01 HOME / SELF CARE / HOMELESS Is pt being admited?: No Does the pt Need Aspirin: No Condition: Stable Instructions: Confusion, Opioid Overdose Referrals: TOD FABIAN MD [Primary Care Provider] - 3-5 Days Time of Disposition: 19:33
[2022-05-30 16:19] LABS: Basophils # (Auto) 0.1 K/mm3 (0.0-0.1); Basophils % (Auto) 0.7 % (0.0-1.8); Eosinophils # (Auto) 0.1 K/mm3 (0.0-0.4); Eosinophils % (Auto) 1.7 % (0.0-4.3); Hematocrit 44.6 % (35.5-45.6); Hemoglobin 15.2 gm/dl (11.8-15.2); Lymphocytes # (Auto) 1.4 K/mm3 (1.2-5.4); Mean Corpuscular HGB Conc 34 % (32-34); Mean Corpuscular Volume 90 fl (84-94); Monocytes # (Auto) 0.6 K/mm3 (0.0-0.8); Monocytes % (Auto) 8.9 % (0.0-7.3); Platelet Count 240 K/mm3 (140-440); Red Blood Count 4.95 M/mm3 (3.65-5.03); Red Cell Distribution Width 13.2 % (13.2-15.2)
[2022-05-30 17:01] LABS: BUN/Creatinine Ratio 23; Blood Urea Nitrogen 25 mg/dL (9-20); Calcium 9.7 mg/dL (8.4-10.2); Hemolysis Index 62
[2022-05-30 18:39] VITALS: BP 117/94
--- NOTE | 2022-05-31 10:02 | Electrocardiograph Report ---
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
== END 2022-05-30 18:42 | disposition home or self-care (01) ==
LOC: ED 14:17
DX: R41.82 Altered mental status, unspecified (principal); T50.905A Adverse effect of unspecified drugs, medicaments and biological substances, initial encounter; F17.200 Nicotine dependence, unspecified, uncomplicated; Y92.89 Other specified places as the place of occurrence of the external cause
CPT/HCPCS: 36415; 80048; 80320; 85025; 93005; 99283; G0480